=== PATIENT | female | born 1970 | race Caucasian/White ===

== ENCOUNTER 2017-05-13 07:13 | Inpatient (IN) | payer BC ==
[~2017-05-13] VITALS: Ht 167.6 cm; Wt 75.0 kg
[2017-05-13] VITALS (33 sets, daily range): BP systolic 85–117; BP diastolic 42–76; PULSE 68–88; RESP 6–30; Ht 167.6 cm; Wt 75.0 kg
[~2017-05-13 07:13] MED LIST: LIDOCAINE 2% (SDV) 5 ML INJ ONE; ROCURONIUM 50 MG INJ ONE
[2017-05-13] MEDS ORDERED: LEVO5TAB28 PO (07:51)
[2017-05-13] MEDS ORDERED: LORA-186 PO (07:51)
[2017-05-13] MEDS ORDERED: FLUO20CA22 PO (07:51)
[2017-05-13] MEDS ORDERED: AZEL137S9 NASAL (07:53)
[2017-05-13] MEDS ORDERED: GUAI-111 PO (07:53)
[2017-05-13] MEDS ORDERED: TRAM-40 PO (07:54)
[2017-05-13] MEDS ORDERED: CEFAZOLIN 2 GM/50 ML (PMX) 50 ML IVPB SCH (08:30)
--- NOTE | 2017-05-13 08:50 | HPN ---
Date/Time of Note Date/Time of Note DATE: 05/13/17 TIME: 08:50 Interval H&P Admission Note Pt. seen H&P reviewed: No system changes JEB FULTON MD May 13, 2017 08:50
[2017-05-13] MEDS ORDERED: PROPOFOL 20 ML ONE (09:08)
[2017-05-13] MEDS ORDERED: FENTAnyl 50 MCG/ML VIAL ONE ×2 (09:12→11:29)
[2017-05-13] MEDS ORDERED: GELATIN SIZE 100 SPONGE ONE (09:13)
[2017-05-13] MEDS ORDERED: THROMBIN 5000 UNIT VIAL ONE (09:13)
[2017-05-13] MEDS ORDERED: BUPIVACAINE 0.25% (MPF) 10 ML 10 ML VIAL ONE (09:13)
[2017-05-13] MEDS ORDERED: POLYMYXIN/BACITRACIN 1L IRRIG ONE (09:14)
[2017-05-13] MEDS ORDERED: HYDROmorphONE 2 MG/ML SYG ONE (09:29)
[2017-05-13] MEDS ORDERED: DEXAMETHASONE 4 MG/ML 1 ML INJ ONE (09:45)
[2017-05-13] MEDS ORDERED: LABETALOL HCL 20MG INJ ONE (09:54)
[2017-05-13] MEDS ORDERED: DIPHENHYDRAMINE 50 MG INJ ONE (10:52)
[2017-05-13] MEDS ORDERED: ONDANSETRON 4 MG INJ ONE ×2 (10:53→11:29)
--- NOTE | 2017-05-13 11:13 | OPR ---
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) Postoperative Diagnosis Same Operation/Procedure Performed Central decompressive laminectomy at L4 Excisional biopsy of intraspinal extradural lesion L4-5 on the right (probable facet cyst) Medial facetectomy and foraminotomy L4-5 bilaterally Cosmetic wound closure (5 cm) Lateral localizing lumbar radiographs (2) Intra-operative nerve monitoring (90 minutes) Surgeon: JEB FULTON MD hair assistant: KAYA SILVER Anesthesia: general Estimated Blood Loss: 10 - 50 ml's Specimens Spinous process of L4 Intra spinal 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
[2017-05-13] MEDS ORDERED: HYDROmorphONE 0.2 MG/ML PCA ONE (11:15)
[2017-05-13] MEDS ORDERED: HYDROmorphONE (0.2 MG/ML) 10ML SYG IV ONE (11:15)
[2017-05-13] MEDS ORDERED: BETHANECHOL 25 MG TAB PO PRN (11:30)
[2017-05-13] MEDS ORDERED: HYDROmorphONE 0.2 MG/ML PCA IV SCH (11:30)
[2017-05-13] MEDS ORDERED: NACL 0.9% 3 ML SYG IV SCH (11:30)
[2017-05-13] MEDS ORDERED: ONDANSETRON 4 MG INJ IV PRN ×2 (11:30)
[2017-05-13] MEDS ORDERED: traMADol 50 MG TAB PO PRN ×2 (11:30)
[2017-05-13] MEDS ORDERED: CEPASTAT LOZENGE MT PRN (11:30)
[2017-05-13] MEDS ORDERED: EPHEDrine SULFATE 50 MG/5 ML SYG IV PRN (11:30)
[2017-05-13] MEDS ORDERED: hydrALAzine 20 MG INJ IV PRN (11:30)
[2017-05-13] MEDS ORDERED: HYDROmorphONE (0.2 MG/ML) 10ML SYG IV PRN (11:30)
[2017-05-13] MEDS ORDERED: DIAZEPAM 5 MG/ML SYG IM PRN (11:30)
[2017-05-13] MEDS ORDERED: PROCHLORPERAZINE 10 MG TAB PO PRN (11:30)
[2017-05-13] MEDS ORDERED: ZOLPIDEM 5 MG TAB PO PRN (11:30)
[2017-05-13] MEDS ORDERED: ACETAMINOPHEN 325 MG TAB PO PRN (11:30)
[2017-05-13] MEDS ORDERED: FENTAnyl 50 MCG/ML VIAL IV PRN ×2 (11:30)
[2017-05-13] MEDS ORDERED: LABETALOL HCL 20MG INJ IV PRN (11:30)
[2017-05-13] MEDS ORDERED: TRIMETHOBENZAMIDE 100 MG/ML VIAL IM PRN (11:30)
[2017-05-13] MEDS ORDERED: NALOXONE (0.4 MG/ML) INJ IV PRN (11:30)
[2017-05-13] MEDS ORDERED: MEPERIDINE 25 MG INJ IV PRN (11:30)
[2017-05-13] MEDS ORDERED: OXYCODONE/ACETAMINOPHEN (5/325) TAB PO PRN ×4 (11:30→18:30)
[2017-05-13] MEDS ORDERED: DIPHENHYDRAMINE 50 MG INJ IV PRN (11:30)
[2017-05-13] MEDS ORDERED: AL HYDROX/MG HYDROX/SIMETH 30 ML CUP PO PRN (11:30)
[2017-05-13] MEDS ORDERED: DIAZEPAM 5 MG TAB PO PRN (11:30)
[2017-05-13] MEDS: HYDROmorphONE (0.2 MG/ML) 10ML SYG IV PRN ×2 (11:32→12:32)
[2017-05-13] MEDS: FENTAnyl 50 MCG/ML VIAL IV PRN ×2 (11:32→11:45)
--- NOTE | 2017-05-13 12:16 | RADRPT ---
PROCEDURE: XR Lumbar Spine one view. CLINICAL INDICATION: Low back pain. Intraoperative. TECHNIQUE: Prone portable cross-table lateral. COMPARISON: No prior studies are available for comparison. FINDINGS: For the purposes of this report, the last apparent true disc level is considered to be L5-S1. Based on this, the posterior needle markers are present at upper L4 and lower L4 levels. IMPRESSION: 1. Intraoperative imaging as described above. RPTAT: QQ .Ramírez Winters MD, MD Date Time Electronically viewed and signed by .Ramírez Winters MD, on 05/13/2017 12:16 .R/
--- NOTE | 2017-05-13 12:16 | RADRPT ---
PROCEDURE: XR Lumbar Spine one view. CLINICAL INDICATION: Low back pain. Intraoperative. TECHNIQUE: Prone portable cross-table lateral. COMPARISON: No prior studies are available for comparison. FINDINGS: For the purposes of this report, the last apparent true disc level is considered to be L5-S1. Based on this, the posterior surgical instrument is present overlying the L4 spinous process. IMPRESSION: 1. Intraoperative imaging as described above. RPTAT: QQ .Ramírez Winters MD, MD Date Time Electronically viewed and signed by .Ramírez Winters MD, on 05/13/2017 12:16 .R/
[2017-05-13] MEDS: DEXTROSE 5%-0.45% NACL 1,000 ML IV SCH ×2 (14:05→16:34)
[2017-05-13] MEDS: CEFAZOLIN 1 GM/50 ML (PMX) 50 ML IVPB SCH ×2 (14:10→17:40)
--- NOTE | 2017-05-13 15:08 | CONS ---
Date/Time of Note Date/Time of Note DATE: 05/13/17 TIME: 14:36 Assessment/Plan Assessment/Plan Additional Assessment/Plan post lumbar spine surgery allergies multiple medications and envirementa will follow with you. Consultation Date/Type/Reason Admit Date/Time May 13, 2017 at 07:13 Date of Consultation: May 13, 2017 Type of Consultation: post operative internal medici Reason for Consultation medical management of post op patient with medical problems Hx of Present Illness patient had issue with her lumbar spine is post op now Eyes: No discharge, No no complaints, No other, No pain, No redness, No visual change ENT: No bleeding, No congestion, No discharge, No dysphagia, No no complaints, No other, No pain, No sore throat Respiratory: No cough, No no complaints, No other, No pain, No pleuritic pain, No shortness of breath, No sputum, No wheezing Gastrointestinal: No blood, No constipation, No decreased appetite, No diarrhea , No flatus, No nausea, No no complaints, No other, No pain, No passing stool, No vomiting Immunologic: pruritis Past Medical History see h&p dictated by pcp Past Surgical History see h&p dictation by pcp Family History Significant Family History: heart disease, cancer Social History Alcohol Use: rarely Smoking Status: Unknown if ever smoked Exam/Review of Systems Vital Signs Vitals Vital Signs Date Time Temp Pulse Resp B/P Pulse Ox O2 Delivery O2 Flow Rate FiO2 05/13/17 13:03 84 20 99/54 99 Nasal Cannula 05/13/17 11:17 97.7 05/13/17 11:10 2.0 Results impression;s/p lumbar spine surgery 2 allergies multiple plan will reorder pre hospitilization medications and follow with you---thank you Medications Medications Current Medications Cefazolin Sodium/ Dextrose 50 ml @ 100 mls/hr OC IVPB ; Start 05/13/17 at 08:30 ; Stop 05/13/17 at 19:00 Dextrose/Sodium Chloride 1,000 ml @ 100 mls/hr Q10H IV ; Start 05/13/17 at 11: 01 Cefazolin Sodium (Ancef 1 Gm/50 ml (Pmx)) 50 ml @ 100 mls/hr Q6 IVPB ; Start at 12:00; Stop 05/14/17 at 06:29 Zolpidem Tartrate (Ambien) 5 mg HS PRN PO INSOMNIA; Start 05/13/17 at 11:30 Prochlorperazine (Compazine) 10 mg Q4H PRN PO NAUSEA AND/OR VOMITING; Start at 11:30 Trimethobenzamide HCl (Tigan) 200 mg Q4H PRN IM NAUSEA AND/OR VOMITING; Start 05/13/17 at 11:30 Ondansetron HCl (Zofran Inj) 4 mg Q6H PRN IV NAUSEA AND/OR VOMITING; Start at 11:30 Al Hydrox/Mg Hydrox/Simethicone (Mag-Al Plus) 15 ml Q4H PRN PO CONSTIPATION; Start 05/13/17 at 11:30 Docusate Sodium (Colace) 100 mg BID PO ; Start 05/14/17 at 09:00 Acetaminophen (Tylenol Tab) 650 mg Q4H PRN PO TEMP GREATER THAN 101F OR GORDON; Start 05/13/17 at 11:30 Ascorbic Acid (Vitamin C) 1,000 mg BID PO ; Start 05/14/17 at 09:00 Ferrous Sulfate (Ferrous Sulfate (Ec)) 325 mg TID PO ; Start 05/14/17 at 09:00 Ranitidine HCl (Zantac) 150 mg BID PO ; Start 05/13/17 at 21:00 Diazepam (Valium) 5 mg Q4H PRN PO MUSCLE SPASMS; Start 05/13/17 at 11:30 Diazepam (Valium) 5 mg Q4H PRN IM MUSCLE SPASMS; Start 05/13/17 at 11:30 Phenol (Cepastat Lozenge) 1 lozenge PRN PRN MT SORE THROAT; Start 05/13/17 at 11:30 Bethanechol Chloride (Urecholine) 25 mg PRN PRN PO UNABLE TO VOID; Start at 11:30 Diphenhydramine HCl (Benadryl) 50 mg Q6H PRN PO PRURITUS; Start 05/13/17 at 11: 30 Hydromorphone HCl (Dilaudid BALE COVERER) Q4PCA IV Last administered on 05/13/17t 11:43 ; Admin Dose 6 MG; Start 05/13/17 at 11:30 Naloxone HCl (Narcan) 0.2 mg Q2M PRN IV RR 8 BREATHS/MIN OR LESS; Start at 11:30 Tramadol HCl (Ultram) 50 mg Q6H PRN PO PAIN LEVEL 1-5; Start 05/13/17 at 11:30 Tramadol HCl (Ultram) 100 mg Q6H PRN PO PAIN LEVEL 6-10; Start 05/13/17 at 11: 30 GREGORIO JAMES MD May 13, 2017 14:46
[2017-05-13] MEDS: AZELASTINE 30 ML NAS SPRAY NASAL SCH (17:40)
[2017-05-13] MEDS: GUAIFENESIN LA 600 MG TABSR PO SCH (20:42)
[2017-05-13] MEDS: PSEUDOEPHEDRINE 30 MG TAB PO SCH (20:42)
[2017-05-13] MEDS: RANITIDINE 150 MG TAB PO SCH (20:43)
[2017-05-13] MEDS: DIPHENHYDRAMINE 50 MG CAP PO PRN (20:43)
[2017-05-13] MEDS ORDERED: [UNRECOGNIZED DRUG - OTHER] PO SCH (21:00)
[2017-05-13] MEDS ORDERED: NON-FORMULARY/PATIENT OWN MED (Levocetirizine Dihydrochloride (Xyzal) 5 MG) PO SCH (21:00)
[2017-05-14] MEDS: CEFAZOLIN 1 GM/50 ML (PMX) 50 ML IVPB SCH ×2 (00:18→05:52)
[2017-05-14] MEDS: DIPHENHYDRAMINE 50 MG CAP PO PRN ×3 (03:12→18:51)
[2017-05-14] MEDS: DEXTROSE 5%-0.45% NACL 1,000 ML IV SCH ×3 (03:13→17:01)
[2017-05-14 05:12] LABS: HEMATOCRIT 35.4 % (37.0-47.0); HEMOGLOBIN 10.7 g/dl (12.0-16.0)
[2017-05-14 06:00] LABS: CALCIUM 9.1 mg/dl (8.4-10.2); CREATININE 0.55 mg/dl (0.44-1.00); POTASSIUM 4.6 mmol/L (3.5-5.1)
--- NOTE | 2017-05-14 07:10 | PN ---
Date/Time of Note Date/Time of Note DATE: 05/14/17 TIME: 07:09 Assessment/Plan Lines/Catheters IV Catheter Type (from Nrsg): Saline Lock Tru[place] in Place (from Nrsg): Yes Subjective 24 Hr Interval Summary The patient is postop day #1 following a decompressive laminectomy at L4 with excision of intraspinal extradural lesion (probable facet cyst). She is resting comfortably in bed. She has some pruritus. Neurovascular structures are intact distally. Her a.m. lab work is unremarkable. Her Hemovac drain had minimal drainage and was discontinued. Wound is clean and dry and was redressed. She will be mobilized as tolerated by physical therapy, and may be discharged home later today if cleared by physical therapy. Discharge precautions and instructions as well as follow-up arrangements in the office have been made. Exam/Review of Systems Vital Signs Vitals Vital Signs Date Time Temp Pulse Resp B/P Pulse Ox O2 Delivery O2 Flow Rate FiO2 05/14/17 05:50 17 05/13/17 19:53 98.2 89 87/42 100 05/13/17 16:50 Nasal Cannula 2.0 Intake and Output 05/13/17 05/13/17 05/14/17 15:00 23:00 07:00 Intake Total 1400 ml 870 ml 2450 ml Output Total 290 ml 1650 ml 3000 ml Balance 1110 ml -780 ml -550 ml Results Result Diagram: 05/14/17 0443 05/14/17 0443 JEB FULTON MD May 14, 2017 07:10
[2017-05-14 08:00] VITALS: BP 116/65; RESP 19
[2017-05-14] MEDS ORDERED: BETHANECHOL 25 MG TAB PO PRN (08:00)
--- NOTE | 2017-05-14 08:16 | CONS ---
Date/Time of Note Date/Time of Note DATE: 05/14/17 TIME: 08:05 Assessment/Plan Assessment/Plan Chief Complaint/Hosp Course patient had issue with her lumbar spine is post op now Problems: Additional Assessment/Plan allergic reaction to medication?--status post lumbar spine surgery 3 stable post op plan per will ambulate today possible dicharge if cleared by pt Consultation Date/Type/Reason Admit Date/Time May 13, 2017 at 07:13 Initial Consult Date 05/13/17 Type of Consultation: post operative internal medici Reason for Consultation medical f/u Referring Provider: JEB FULTON MD 24 HR Interval Summary Free Text/Dictation patient alert complaining of itching probably 2nd to rv detailer pump narcotic which was discontinued ,otherwise complaining of bacvk pain Exam/Review of Systems Vital Signs Vitals Vital Signs Date Time Temp Pulse Resp B/P Pulse Ox O2 Delivery O2 Flow Rate FiO2 05/14/17 05:50 17 05/13/17 19:53 98.2 89 87/42 100 05/13/17 16:50 Nasal Cannula 2.0 Intake and Output 05/13/17 05/13/17 05/14/17 15:00 23:00 07:00 Intake Total 1400 ml 870 ml 2450 ml Output Total 290 ml 1650 ml 3000 ml Balance 1110 ml -780 ml -550 ml Exam Constitutional: alert Head: normocephalic Respiratory: clear to auscultation Cardiovascular: regular rate and rhythm Gastrointestinal: soft Skin: nl turgor Lymph: No enlarged, No nl lymph nodes, No nontender, No other Results Result Diagram: 05/14/17 0443 05/14/17442 Results 24 hrs Laboratory Tests Test 05/14/17 04:43 Hemoglobin 10.7 L Hematocrit 35.4 L Sodium Level 145 H Potassium Level 4.6 Chloride Level 108 Carbon Dioxide Level 29 Anion Gap 13 Blood Urea Nitrogen 9 Creatinine 0.55 Glucose Level 107 Calcium Level 9.1 Medications Medications Current Medications Dextrose/Sodium Chloride (D5-1/2ns) 1,000 ml @ 100 mls/hr Q10H IV Last administered on 05/14/17t 03:13; Admin Dose 100 MLS/HR; Start 05/13/17 at 11:01 Zolpidem Tartrate (Ambien) 5 mg HS PRN PO INSOMNIA; Start 05/13/17 at 11:30 Prochlorperazine (Compazine) 10 mg Q4H PRN PO NAUSEA AND/OR VOMITING; Start at 11:30 Trimethobenzamide HCl (Tigan) 200 mg Q4H PRN IM NAUSEA AND/OR VOMITING; Start 05/13/17 at 11:30 Ondansetron HCl (Zofran Inj) 4 mg Q6H PRN IV NAUSEA AND/OR VOMITING Last administered on 05/13/17 16:29; Admin Dose 4 MG; Start 05/13/17 at 11:30 Al Hydrox/Mg Hydrox/Simethicone (Mag-Al Plus) 15 ml Q4H PRN PO CONSTIPATION; Start 05/13/17 at 11:30 Docusate Sodium (Colace) 100 mg BID PO ; Start 05/14/17 at 09:00 Acetaminophen (Tylenol Tab) 650 mg Q4H PRN PO TEMP GREATER THAN 101F OR GORDON; Start 05/13/17 at 11:30 Ascorbic Acid (Vitamin C) 1,000 mg BID PO ; Start 05/14/17 at 09:00 Ferrous Sulfate (Ferrous Sulfate (Ec)) 325 mg TID PO ; Start 05/14/17 at 09:00 Ranitidine HCl (Zantac) 150 mg BID PO Last administered on 05/13/17 20:43; Admin Dose 150 MG; Start 05/13/17 at 21:00 Diazepam (Valium) 5 mg Q4H PRN PO MUSCLE SPASMS Last administered on 05/13/17 20:51; Admin Dose 5 MG; Start 05/13/17 at 11:30 Diazepam (Valium) 5 mg Q4H PRN IM MUSCLE SPASMS; Start 05/13/17 at 11:30 Phenol (Cepastat Lozenge) 1 lozenge PRN PRN MT SORE THROAT Last administered on 05/13/17 17:50; Admin Dose 1 LOZENGE; Start 05/13/17 at 11:30 Bethanechol Chloride (Urecholine) 25 mg PRN PRN PO UNABLE TO VOID; Start at 11:30 Diphenhydramine HCl (Benadryl) 50 mg Q6H PRN PO PRURITUS Last administered on 03:12; Admin Dose 50 MG; Start 05/13/17 at 11:30 Hydromorphone HCl (Dilaudid STACK MATCHER) Q4PCA IV Last administered on 05/13/17 11:43 ; Admin Dose 6 MG; Start 05/13/17 at 11:30 Naloxone HCl (Narcan) 0.2 mg Q2M PRN IV RR 8 BREATHS/MIN OR LESS; Start at 11:30 Tramadol HCl (Ultram) 50 mg Q6H PRN PO PAIN LEVEL 1-5; Start 05/13/17 at 11:30 Tramadol HCl (Ultram) 100 mg Q6H PRN PO PAIN LEVEL 6-10; Start 05/13/17 at 11: 30 Fluoxetine HCl (Prozac) 20 mg DAILY PO ; Start 05/14/17 at 09:00 Loratadine (Claritin) 10 mg DAILY PO ; Start 05/14/17 at 09:00 Azelastine HCl (Astelin) 2 spray DAILY NASAL Last administered on 05/13/17 17: 40; Admin Dose 2 SPRAY; Start 05/13/17 at 17:00 Guaifenesin (Mucinex) 600 mg BID PO Last administered on 05/13/17 20:42; Admin Dose 600 MG; Start 05/13/17 at 21:00 Pseudoephedrine HCl (Sudogest) 60 mg BID PO Last administered on 05/13/17 20: 42; Admin Dose 60 MG; Start 05/13/17 at 21:00 Oxycodone/ Acetaminophen (Percocet (5/ 325)) 1 tab Q4H PRN PO PAIN LEVEL 1-5; Start 05/13/17 at 18:30; Status Future Hold Oxycodone/ Acetaminophen (Percocet (5/ 325)) 2 tab Q4H PRN PO PAIN LEVEL 6-10; Start 05/13/17 at 18:30; Status Future Hold GREGORIO JAMES MD May 14, 2017 08:16
[2017-05-14] MEDS ORDERED: OXYCODONE/ACETAMINOPHEN (5/325) TAB PO PRN (08:30)
[2017-05-14] MEDS: AZELASTINE 30 ML NAS SPRAY NASAL SCH (08:47)
[2017-05-14] MEDS: LORATADINE 10 MG TAB PO SCH (08:47)
[2017-05-14] MEDS: DOCUSATE SODIUM 100 MG CAP PO SCH ×2 (08:48→20:35)
[2017-05-14] MEDS: GUAIFENESIN LA 600 MG TABSR PO SCH ×2 (08:48→20:35)
[2017-05-14] MEDS: FERROUS SULFATE (EC) 325 MG TAB PO SCH ×3 (08:48→20:36)
[2017-05-14] MEDS: FLUOXETINE 20 MG CAP PO SCH (08:49)
[2017-05-14] MEDS: PSEUDOEPHEDRINE 30 MG TAB PO SCH ×2 (08:50→20:35)
[2017-05-14] MEDS: ASCORBIC ACID 500 MG TAB PO SCH ×2 (08:51→20:36)
[2017-05-14] MEDS: RANITIDINE 150 MG TAB PO SCH ×2 (08:51→20:35)
[2017-05-14] MEDS: OXYCODONE/ACETAMINOPHEN (5/325) TAB PO PRN ×4 (08:52→23:00)
[2017-05-14] MEDS ORDERED: METHYLPREDNISOLONE (MEDROL) DOSE PACK PO SCH (11:30)
[2017-05-14] MEDS ORDERED: METHYLPREDNISOLONE 4 MG TAB PO SCH (12:30)
[2017-05-14 15:24] LABS: ADD UMIC NO; UR ASCORBIC ACID NEGATIVE (NEGATIVE); UR BILIRUBIN (Dip) NEGATIVE (NEGATIVE); UR BLOOD (Dip) NEGATIVE (NEGATIVE); UR CLARITY CLEAR (CLEAR); UR COLOR COLORLESS (YELLOW); UR GLUCOSE (Dip) NEGATIVE (NEGATIVE); UR KETONES (Dip) NEGATIVE (NEGATIVE); UR LEUKOCYTE ESTERASE (Dip) NEGATIVE Leu/ul (NEGATIVE); UR NITRITE (Dip) NEGATIVE (NEGATIVE); UR SPECIFIC GRAVITY (Dip) 1.004 (1.003-1.030); UR TOTAL PROTEIN (Dip) NEGATIVE (NEGATIVE); UR UROBILINOGEN (Dip) NEGATIVE (NEGATIVE)
[2017-05-14 19:10] VITALS: BP 99/56; RESP 18
[2017-05-15] MEDS: DEXTROSE 5%-0.45% NACL 1,000 ML IV SCH (03:01)
--- NOTE | 2017-05-15 07:01 | PN ---
Date/Time of Note Date/Time of Note DATE: 05/15/17 TIME: 07:00 Assessment/Plan Lines/Catheters IV Catheter Type (from Nrsg): Saline Lock Truj[place] in Place (from Nrsg): No Subjective 24 Hr Interval Summary The patient is postop day #2 following a decompressive laminectomy and excision of intraspinal cyst. She is resting comfortably in bed. She is afebrile. Neurovascular structures are intact distally she will be discharged home today, and will return for postop follow-up in 1-2 weeks. Strict discharge precautions and instructions were provided Exam/Review of Systems Vital Signs Vitals Vital Signs Date Time Temp Pulse Resp B/P Pulse Ox O2 Delivery O2 Flow Rate FiO2 05/14/17 19:10 98.6 74 18 99/56 95 05/13/17 16:50 Nasal Cannula 2.0 Intake and Output 05/14/17 05/14/17 05/15/17 15:00 23:00 07:00 Intake Total 300 ml 1500 ml 500 ml Output Total 3300 ml Balance 300 ml -1800 ml 500 ml Results Result Diagram: 05/14/17 0443 05/14/17 0443 JEB FULTON MD May 15, 2017 07:01
[2017-05-15] MEDS ORDERED: METHYLPREDNISOLONE 4 MG TAB PO SCH ×4 (07:20→21:00)
[2017-05-15 07:53] VITALS: BP 115/52; RESP 18
--- NOTE | 2017-05-15 08:19 | CONS ---
Date/Time of Note Date/Time of Note DATE: 05/15/17 TIME: 08:12 Consult Date/Type/Reason Admit Date/Time May 13, 2017 at 07:13 Initial Consult Date 05/13/17 Type of Consultation: post operative internal medici Ordering Provider: JEB FULTON MD Objective Vital Signs Date Time Temp Pulse Resp B/P Pulse Ox O2 Delivery O2 Flow Rate FiO2 05/15/17 07:53 98.2 72 18 115/52 95 05/13/17 16:50 Nasal Cannula 2.0 Intake and Output 05/14/17 05/14/17 05/15/17 15:00 23:00 07:00 Intake Total 300 ml 1500 ml 500 ml Output Total 3300 ml Balance 300 ml -1800 ml 500 ml Exam heent negative lungs clear heart regular rhythm skin erythema and rash back where tape was placed. Results/Medications Result Diagram: 05/14/17 0443 05/14/17 0443 Results 24 hrs Laboratory Tests Test 05/14/17 14:48 Urine Color COLORLESS Urine Clarity CLEAR Urine pH 6.0 Urine Specific [place] 1.004 Urine Ketones NEGATIVE Urine Nitrite NEGATIVE Urine Bilirubin NEGATIVE Urine Urobilinogen NEGATIVE Urine Leukocyte Esterase NEGATIVE Urine Hemoglobin NEGATIVE Urine Glucose NEGATIVE Urine Total Protein NEGATIVE Medications Current Medications Dextrose/Sodium Chloride (D5-1/2ns) 1,000 ml @ 100 mls/hr Q10H IV Last administered on 05/14/17 03:13; Admin Dose 100 MLS/HR; Start 05/13/17 at 11:01 Zolpidem Tartrate (Ambien) 5 mg HS PRN PO INSOMNIA Last administered on 20:34; Admin Dose 5 MG; Start 05/13/17 at 11:30 Prochlorperazine (Compazine) 10 mg Q4H PRN PO NAUSEA AND/OR VOMITING; Start at 11:30 Trimethobenzamide HCl (Tigan) 200 mg Q4H PRN IM NAUSEA AND/OR VOMITING; Start 05/13/17 at 11:30 Ondansetron HCl (Zofran Inj) 4 mg Q6H PRN IV NAUSEA AND/OR VOMITING Last administered on 05/13/17 16:29; Admin Dose 4 MG; Start 05/13/17 at 11:30 Al Hydrox/Mg Hydrox/Simethicone (Mag-Al Plus) 15 ml Q4H PRN PO CONSTIPATION; Start 05/13/17 at 11:30 Docusate Sodium (Colace) 100 mg BID PO Last administered on 05/14/17 20:35; Admin Dose 100 MG; Start 05/14/17 at 09:00 Acetaminophen (Tylenol Tab) 650 mg Q4H PRN PO TEMP GREATER THAN 101F OR GORDON; Start 05/13/17 at 11:30 Ascorbic Acid (Vitamin C) 1,000 mg BID PO Last administered on 05/14/17 20:36 ; Admin Dose 1,000 MG; Start 05/14/17 at 09:00 Ferrous Sulfate (Ferrous Sulfate (Ec)) 325 mg TID PO Last administered on 20:36; Admin Dose 325 MG; Start 05/14/17 at 09:00 Ranitidine HCl (Zantac) 150 mg BID PO Last administered on 05/14/17 20:35; Admin Dose 150 MG; Start 05/13/17 at 21:00 Diazepam (Valium) 5 mg Q4H PRN PO MUSCLE SPASMS Last administered on 05/13/17 20:51; Admin Dose 5 MG; Start 05/13/17 at 11:30 Diazepam (Valium) 5 mg Q4H PRN IM MUSCLE SPASMS; Start 05/13/17 at 11:30 Phenol (Cepastat Lozenge) 1 lozenge PRN PRN MT SORE THROAT Last administered on 05/13/17 17:50; Admin Dose 1 LOZENGE; Start 05/13/17 at 11:30 Bethanechol Chloride (Urecholine) 25 mg PRN PRN PO UNABLE TO VOID; Start at 11:30 Diphenhydramine HCl (Benadryl) 50 mg Q6H PRN PO PRURITUS Last administered on 18:51; Admin Dose 50 MG; Start 05/13/17 at 11:30 Naloxone HCl (Narcan) 0.2 mg Q2M PRN IV RR 8 BREATHS/MIN OR LESS; Start at 11:30 Tramadol HCl (Ultram) 50 mg Q6H PRN PO PAIN LEVEL 1-5 Last administered on 05/14 10:33; Admin Dose 50 MG; Start 05/13/17 at 11:30 Tramadol HCl (Ultram) 100 mg Q6H PRN PO PAIN LEVEL 6-10; Start 05/13/17 at 11: 30 Fluoxetine HCl (Prozac) 20 mg DAILY PO Last administered on 05/14/17 08:49; Admin Dose 20 MG; Start 05/14/17 at 09:00 Loratadine (Claritin) 10 mg DAILY PO Last administered on 05/14/17 08:47; Admin Dose 10 MG; Start 05/14/17 at 09:00 Azelastine HCl (Astelin) 2 spray DAILY NASAL Last administered on 05/14/17 08: 47; Admin Dose 2 SPRAY; Start 05/13/17 at 17:00 Guaifenesin (Mucinex) 600 mg BID PO Last administered on 05/14/17 20:35; Admin Dose 600 MG; Start 05/13/17 at 21:00 Pseudoephedrine HCl (Sudogest) 60 mg BID PO Last administered on 05/14/17 20: 35; Admin Dose 60 MG; Start 05/13/17 at 21:00 Oxycodone/ Acetaminophen (Percocet (5/ 325)) 1 tab Q4H PRN PO PAIN LEVEL 1-5; Start 05/14/17 at 08:30 Oxycodone/ Acetaminophen (Percocet (5/ 325)) 2 tab Q4H PRN PO PAIN LEVEL 6-10 Last administered on 05/14/17 23:00; Admin Dose 2 TAB; Start 05/14/17 at 08:30 Methylprednisolone (Medrol) 8 mg HS PO ; Start 05/15/17 at 21:00; Stop 05/15/17 at 21:01 Methylprednisolone (Medrol) 4 mg HS PO ; Start 05/16/17 at 21:00; Stop 05/18/17 at 21:01 Assessment/Plan Chief Complaint/Hosp Course patient had issue with her lumbar spine is post op now Problems: Additional Assessment/Plan allergic reaction with itching and rash Cont'd Hospitalization Reason: patient stable medically in struction given for home meds will go home on GREGORIO JAMES MD May 15, 2017 08:19
[2017-05-15] MEDS: LORATADINE 10 MG TAB PO SCH (09:19)
[2017-05-15] MEDS: RANITIDINE 150 MG TAB PO SCH (09:19)
[2017-05-15] MEDS: DOCUSATE SODIUM 100 MG CAP PO SCH (09:19)
[2017-05-15] MEDS: FLUOXETINE 20 MG CAP PO SCH (09:19)
[2017-05-15] MEDS: FERROUS SULFATE (EC) 325 MG TAB PO SCH ×2 (09:19→13:58)
[2017-05-15] MEDS: ASCORBIC ACID 500 MG TAB PO SCH (09:19)
[2017-05-15] MEDS: PSEUDOEPHEDRINE 30 MG TAB PO SCH (09:20)
[2017-05-15] MEDS: GUAIFENESIN LA 600 MG TABSR PO SCH (09:21)
[2017-05-15] MEDS: AZELASTINE 30 ML NAS SPRAY NASAL SCH (09:21)
[2017-05-15] MEDS: OXYCODONE/ACETAMINOPHEN (5/325) TAB PO PRN ×2 (09:22→14:01)
[2017-05-16] MEDS ORDERED: METHYLPREDNISOLONE 4 MG TAB PO SCH (21:00)
--- NOTE | 2017-05-25 10:03 | DS ---
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 Pain was well controlled. Her diet and activity were advanced as tolerated. She was doing well prior to discharge and was discharged to home in good condition on postop day #2. Home Meds Reported Medications Tramadol Hcl* (Ultram*) 50 Mg Tablet, 50-100 MG PO Q6H Y for PAIN, TAB 05/13/17 Azelastine Hcl* (Azelastine Hcl*) 137 Mcg/0.137 Ml [place].pump, 2 SPRAYS NASAL DAILY, #1 EA TO EACH NOSTRIL 05/13/17 Guaifenesin/Pseudoephedrne HCl (Mucinex D ER 600-60 mg Tablet) 1 Each Tab.er.12h , 1 EACH PO BID, TAB 05/13/17 Levocetirizine Dihydrochloride (Xyzal) 5 Mg Tablet, 5 MG PO QPM, TAB 05/13/17 Loratadine* (Claritin*) 10 Mg Tablet, 10 MG PO DAILY, TAB 05/13/17 Fluoxetine Hcl* (Fluoxetine Hcl*) 20 Mg Capsule, 20 MG PO DAILY, CAP 05/13/17 Follow-up Plan Follow-up with Dr. Luo in 1-2 weeks Primary Care Provider ERICKSON Chong May 25, 2017 10:02
--- NOTE | 2017-06-06 11:00 | OPR ---
DATE OF OPERATION: 05/13/2017 PREOPERATIVE DIAGNOSES: 1. Lumbar spinal stenosis at L4. 2. Intraspinal extradural lesion at L4-5 on the right (probable facet cyst). POSTOPERATIVE DIAGNOSES: 1. Lumbar spinal stenosis at L4. 2. Intraspinal extradural lesion at L4-5 on the right (probable facet cyst). OPERATION PERFORMED: 1. Central decompressive laminectomy at L4. 2. Excisional biopsy of intraspinal extradural lesion L4-5 on the right (probable facet cyst). 3. Medial facetectomy with foraminotomy L4-5 bilaterally. 4. Cosmetic wound closure (5 cm). 5. Lateral localization by radiographs (2). 6. Intraoperative nerve monitoring (90 minutes). SURGEON: Faheem Luo MD METAL ENGINEERING PROCESS WORKER: STEVEN Wayne ANESTHESIA: General endotracheal. ANESTHESIOLOGIST: Dr. Viramontes. ESTIMATED BLOOD LOSS: 30 mL -- none replaced. DRAINS: Two medium Hemovac drains applied. COMPLICATIONS: None. INDICATIONS: This is a 46-year-old female with persistent back and lower extremity complaints, right greater than left, which have been unrelieved by conservative management. She has undergone a number of diagnostic studies including an MRI of the lumbar spine which demonstrated lumbar spinal stenosis at L4 and intraspinal extradural lesion at L4-5 on the right (probable facet cyst). Treatment options were discussed with the patient and she would like to proceed with surgery. OPERATIVE FINDINGS AT SURGERY: A moderately severe central stenosis at L4 was confirmed, as was the intraspinal extradural lesion on the right which had the appearance of a facet cyst. DESCRIPTION OF PROCEDURE: With the patient in supine position and after satisfactory induction of general endotracheal anesthesia by Dr. Viramontes, the patient was turned to the pronated position onto the [place] frame. All pressure points were carefully padded. The back was prepped and draped in the usual sterile fashion. Athrombic pumps were applied to the legs below the knees for venous stasis during and after the procedure, and an indwelling Trujillo catheter was also placed preoperatively to facilitate bladder drainage during and after the procedure. Two spinal needles were placed and exited between the L4 and L5 spinous process. A lateral roentrogram was taken which confirmed anatomic localization. A 5 cm incision was carried out in the midline centered over the spinous process of L4 through skin and subcutaneous tissue to the deep fascia, after the skin was infiltrated with 0.25 percent Marcaine without epinephrine for postoperative analgesia. Superficial retractors were placed and hemostasis secured with electrocautery. Throughout the procedure copious amounts of antibacterial irrigating solution was periodically irrigated through the wound. The fascia was then incised in the midline with a hot knife and bilateral subperiosteal dissection carried out at L4. Deep retractors were placed and deep hemostasis secured with electrocautery. A second intraoperative radiograph was taken with a Jameel clamp in what was felt to be the spinous process of L4, and this was confirmed on a second x-ray. A decompressive laminectomy at L4 was then carried out using a Horsely bone rongeur, Leksell rongeur, Kerrison punch and curets. The ligamentum flavum was excised throughout dissection and the operating microscope moved into place. A medial facetectomy and foraminotomy was then accomplished using a small hand ostial mallet, Kerrison punch and curets. Attention was then turned to the intraspinal extradural lesion on the right at L4-5. This was carefully peeled off the dura and the medial aspect of the L4-5 facet joint. It was sent to the laboratory for pathologic study. The epidural hemostasis was secured with bipolar electrocautery on low setting. The anesthesiologist was asked to perform a Valsalva maneuver to 40 mmHg and no spinal fluid leak was noted. The cyst measured approximately 1.5 cm in diameter. The wound was then closed in layers over 2 medium Hemovac drains; 1 below the fascia and 1 above the fascia, using 1 Stratafix sutures on the deep musculature and deep fascia of the back, 2-0 Vicryl subcuticular Stratafix suture to subcutaneous tissue and 4-0 Vicryl subcuticular cosmetic closing suture on the skin. Dermabond and sterile compressive dressings were applied. The patient, having tolerated the procedure well, was then turned into supine position onto her bed and extubated by Dr. Valencia. She was transported to the recovery room in satisfactory condition. Due to her tape sensitivity her dressing was secured with paper tape. At the conclusion of the procedure the sponge, instrument and needle counts were all correct. Throughout the procedure neural monitoring was carried out by [employer] including EMG, SSEP and MEP monitoring of the L3, L4, L5 and S1 nerve roots bilaterally, along with spinal cord potentials. These were interpreted by a neurologist employed by [employer]. Dictated By: Faheem Luo MD /rosalind/jackelyn /Document#: [id number]
== END 2017-05-15 14:40 | disposition home or self-care (01) | DRG 520 ==
LOC: REC 07:13 → EDSTATUS 09:30 → MS1 13:18
PROVIDERS: ADMIT Orthopaedic Surgery; ATTEND Orthopaedic Surgery
PROC: 00BY0ZZ Excision of Lumbar Spinal Cord, Open Approach (ICD-10-PCS; 2017-05-13)
PROC: 01NB0ZZ Release Lumbar Nerve, Open Approach (ICD-10-PCS; principal; 2017-05-13 09:30)
DX: M48.06 Spinal stenosis, lumbar region (principal); M71.38 Other bursal cyst, other site
CPT/HCPCS: 72020; 80048; 81003; 84703; 85014; 85018; 86850; 86900; 86901; 86920; 87086; 97116; 97162; 97530; J0690; J1100; J1170; J1200; J2405; J3010; J7042; J7509